=== PATIENT | male | born 1940 | race Caucasian/White ===

== ENCOUNTER 2018-07-23 11:39 | Day surgery (SDC) | payer OTHER ==
[2018-07-23] MEDS ORDERED: LR 1,000 ML IV ONE (12:11)
--- NOTE | 2018-07-23 12:54 | PDANEPAE ---
ANE History of Present Illness colonoscopy ANE Past Medical History - Cardiovascular History Hx Hypertension: No Hx Arrhythmias: Yes Hx Chest Pain: No Hx Coronary Artery / Peripheral Vascular Disease: No Hx CHF / Valvular Disease: No Hx Palpitations: No Cardiovascular History Comment: was told had an irregular rhythm by PCP, went to [facility] - Pulmonary History Hx COPD: No Hx Asthma/Reactive Airway Disease: No Hx Recent Upper Respiratory Infection: No Hx Oxygen in Use at Home: No Hx Sleep Apnea: No Sleep Apnea Screening Result - Last Documented: Negative - Neurologic History Hx Cerebrovascular Accident: No Hx Seizures: No Hx Dementia: No - Endocrine History Hx Diabetes: No - Renal History Hx Renal Disorders: No Renal History Comment: hesitancy with urination - Liver History Hx Hepatic Disorders: No - Neurological & Psychiatric Hx Hx Neurological and Psychiatric Disorders: No - Cancer History 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 gastric resection for Gist tumor. varicose vein surgery ANE Review of Systems Review of Systems: - Exercise capacity METS (RN): 4 METS ANE Patient History - Allergies Allergies/Adverse Reactions: midazolam [From Versed] Allergy (Verified 07/12/18 11:15) headache - Home Medications Home medications: home medication list seen and reviewed Home Medications: Adult One Daily Multivit Tab 07/12/18 [Last Taken 07/20/18] Alpha Lipoic Acid 07/12/18 [Last Taken 07/20/18] Co Q-10 07/12/18 [Last Taken 07/20/18] Fish Oil Donna-3 Softgel 07/12/18 [Last Taken 07/20/18] Ginkgo Biloba 07/12/18 [Last Taken 07/20/18] Saw [place] 07/12/18 [Last Taken 07/20/18] Vitamin D3 07/12/18 [Last Taken 07/20/18] - NPO status NPO Since - Liquids (Date): 07/23/18 NPO Since - Liquids (Time): 04:30 NPO Since - Solids (Date): 07/22/18 NPO Since - Solids (Time): 09:00 - Smoking Hx Smoking Status: Former smoker - Family Anes Hx Family Hx Anesthesia Complications: none ANE Labs/Vital Signs - Vital Signs Blood Pressure: 169/92 Heart Rate: 57 Respiratory Rate: 18 O2 Sat (%): 98 Height: 180.34 cm Weight: 75.296 kg ANE Physical Exam - Airway Neck exam: FROM Mallampati Score: Class 1 Mouth exam: normal dental/mouth exam - Pulmonary Pulmonary: no respiratory distress - Cardiovascular Cardiovascular: regular rate and rhythym - ASA Status ASA Status: II ANE Anesthesia Plan Anesthesia Plan: GA with mask
[2018-07-23] MEDS ORDERED: PROPOFOL 200 MG/20 ML VIAL ONE ×3 (12:55→13:17)
[2018-07-23] MEDS ORDERED: LIDOCAINE 2% 5 ML SDV ONE (12:57)
[2018-07-23] MEDS ORDERED: INDOMETHACIN 50 MG SUPP PR PRN (13:36)
--- NOTE | 2018-07-23 13:36 | PDGENHP ---
History & Physical Chief Complaint: hx of polyps History of Present Illness: 78 year old malw epresents for surveillance colonoscopy. Pertinent Past, Social, Family History: PSurghx: inguinal history. PMHx: GIST Relevant Physical Exam: HEENT: anicteric. CV: RRR +s1s2. Lungs: CTAB. Abd: soft, nt, + bs Cardiorespiratory Assessment: ASA 2
[2018-07-23] MEDS ORDERED: NS 500 ML IV SCH (13:45)
[2018-07-23] MEDS ORDERED: ONDANSETRON 4 MG/2 ML VIAL IVP PRN (13:57)
[2018-07-23] MEDS ORDERED: ACETAMINOPHEN 500 MG TAB PO PRN (13:57)
[2018-07-23] MEDS ORDERED: PROMETHAZINE HCL 25 MG/ML INJ IVP PRN (13:57)
[2018-07-23] MEDS ORDERED: ALBUTEROL 3 ML DEYVIAL IH PRN (13:57)
[2018-07-23] MEDS ORDERED: LR 500 ML IV PRN (13:57)
[2018-07-23] MEDS ORDERED: fentaNYL 100 MCG/2 ML INJ IVP PRN (13:57)
[2018-07-23] MEDS ORDERED: oxyCODONE IR 5 MG TAB PO PRN (13:57)
[2018-07-23] MEDS ORDERED: NALOXONE HCL 0.4 MG/ML INJ IVP PRN (13:57)
[2018-07-23] MEDS ORDERED: HYDROCODONE/APAP 5/325 TAB PO PRN (13:57)
--- NOTE | 2018-07-23 13:57 | POSTANESTH ---
Post Anesthetic Evaluation Cardiovascular Status: Normal, Stable Respiratory Status: Normal, Stable Level of Consciousness/Mental Status: Can Participate in Eval Pain Control: Adequate, Prn Tx Ordered Nausea/Vomiting Control: Adequate, Prn Tx Ordered Complications Possibly Related to Anesthesia: None Noted
--- NOTE | 2018-07-23 14:04 | GIREPORT ---
Counts Include 234 Beds At [facility] Surgical Services - Endoscopy Department Patient Name: Venkat Mcclure Procedure Date: 07/23/2018 1:33 PM Patient Type: Outpatient Attending MD/ ER Physician: Germain Porter MD Procedure: Colonoscopy Indications: High risk colon cancer surveillance: Personal history of colonic polyps Patient Profile: 78 year old male with a history of polyps presents for surveillance colonoscopy. Providers: Germain Porter MD Medicines: Monitored Anesthesia Care Complications: No immediate complications. Estimated blood loss: Minimal. Description of Procedure: After obtaining informed consent, the scope was passed under direct vis ion. Throughout the procedure, the patient's blood pressure, pulse, and oxyg en saturations were monitored continuously. The Colonoscope with irrigatio n channel was introduced through the anus with the intention of advancing to the cecum. The scope was advanced to the sigmoid colon before the proce dure was aborted. Medications were given. The colonoscopy was performed with out difficulty. The patient tolerated the procedure well. The quality of th e bowel preparation was good. The rectum was photographed. Findings: The perianal and digital rectal examinations were normal. Pertinent negatives include no palpable rectal lesions. A large amount of stool was found in the rectum and in the sigmoid colo n, precluding visualization. Estimated Blood Loss: Estimated blood loss was minimal. Post Op Diagnosis: - Stool in the rectum and in the sigmoid colon. - No specimens collected. Recommendation: - Discharge patient to home (with escort). - Resume previous diet. - Continue present medications. - Repeat colonoscopy at the next available appointment because the oralia l preparation was suboptimal. - Needs two day prep (with 2 whole preps) - Thank you for allowing me to participate in the care of your patient. Attending Participation: I personally performed the entire procedure. Germain Porter MD Germain Porter MD 07/23/2018 2:04:36 PM This report has been signed electronicallyGermain Porter MD Number of Addenda: 0 Note Initiated On: 07/23/2018 1:33 PM [email or web address]
[2018-07-23 15:40] VITALS: BP 174/94
== END 2018-07-23 15:40 | disposition home or self-care (01) ==
LOC: FSGY 11:39
PROVIDERS: ATTEND Internal Medicine Gastroenterology
DX: Z12.11 Encounter for screening for malignant neoplasm of colon (principal); Z86.010 Personal history of colon polyps; Z53.8 Procedure and treatment not carried out for other reasons
CPT/HCPCS: J2704